=== PATIENT | male | born 1950 | race Caucasian/White ===

== ENCOUNTER 2017-05-04 19:28 | Inpatient (IN) | payer MEDICARE ==
[~2017-05-04] VITALS: Ht 180.3 cm; Wt 74.4 kg
[2017-05-04] MEDS ORDERED: ACETAMINOPHEN 325MG TABLET PO ONE (22:00)
[2017-05-05] MEDS ORDERED: GUAIFENESIN 200MG/10ML SUGAR FREE UDC PO PRN (03:00)
[2017-05-05] MEDS ORDERED: MAGNESIUM/ALUMINUM HYDROXIDE/SIMETHICONE 30ML UDC PO PRN (03:00)
[2017-05-05] MEDS ORDERED: ACETAMINOPHEN 325MG TABLET PO PRN (03:00)
[2017-05-05] MEDS ORDERED: IPRATROPIUM/ALBUTEROL 0.5-3(2.5)MG/3ML NEB INH PRN (03:00)
[2017-05-05] MEDS ORDERED: MAGNESIUM HYDROXIDE 400MG/5ML 30ML UDC PO PRN (03:00)
[2017-05-05] MEDS ORDERED: ONDANSETRON HCL 4MG/2ML VIAL IV PRN (03:00)
[2017-05-05] MEDS: HYDROCODONE/ACETAMINOPHEN 10/325MG TABLET PO PRN ×2 (03:54→13:03)
[2017-05-05 05:00] VITALS: BP 132/77
[2017-05-05] MEDS: SODIUM CHLORIDE 0.9% INJ 3ML FLUSH IVF SCH ×3 (05:39→21:15)
[2017-05-05 08:00] VITALS: BP 132/84
[2017-05-05 09:06] LABS: HEMATOCRIT. 37.1 % (42.0-52.0); HEMOGLOBIN. 12.7 g/dL (14.0-18.0); MEAN CORPUSCULAR HEMOGLOBIN 28.2 pg (28.0-32.0); MEAN CORPUSCULAR VOLUME 82.4 fL (80.0-94.0); MEAN PLATELET VOLUME 6.5 fl (7.4-10.4); PLATELET 382 x1000/uL (130-400); RED BLOOD CELL COUNT 4.51 mill/uL (4.7-6.1); RED CELL DISTRIBUTION WIDTH 15.5 % (11.6-14.6)
[2017-05-05 09:32] LABS: CARBON DIOXIDE 25 mEq/L (21-32); CHLORIDE 94 mEq/L (98-107)
[2017-05-05] MEDS: DOCUSATE SODIUM 250MG CAPSULE PO SCH ×2 (10:31→17:48)
[2017-05-05] MEDS: OMEPRAZOLE 20MG CAPSULE EXTENDED RELEASE PO SCH ×2 (10:31→21:15)
[2017-05-05] MEDS: CHLORDIAZEPOXIDE 5 MG CAPSULE PO SCH ×2 (10:31→17:49)
[2017-05-05] MEDS: CARBAMAZEPINE 200MG TABLET PO SCH ×2 (10:32→21:15)
[2017-05-05] MEDS: THIAMINE HCL 100MG TABLET PO SCH (10:32)
[2017-05-05] MEDS: CITALOPRAM HYDROBROMIDE 10MG TABLET PO SCH (10:32)
[2017-05-05 12:00] VITALS: BP 149/92
[2017-05-05 13:22] LABS: PLATELET ESTIMATE NORMAL
[2017-05-05 16:00] VITALS: BP 113/72
[2017-05-05 20:00] VITALS: BP 131/71
[2017-05-05] MEDS ORDERED: SENNOSIDES/DOCUSATE SOD 8.6/50MG TABLET PO PRN (21:00)
[2017-05-05] MEDS: ATORVASTATIN CALCIUM 40MG TABLET PO SCH (21:15)
[2017-05-06] VITALS: BP 141/86
[2017-05-06 04:00] VITALS: BP 136/84
[2017-05-06] MEDS: SODIUM CHLORIDE 0.9% INJ 3ML FLUSH IVF SCH ×3 (06:21→21:42)
[2017-05-06] MEDS: OMEPRAZOLE 20MG CAPSULE EXTENDED RELEASE PO SCH ×2 (06:21→21:41)
[2017-05-06 08:00] VITALS: BP 132/76
[2017-05-06] MEDS: CITALOPRAM HYDROBROMIDE 10MG TABLET PO SCH (09:27)
[2017-05-06] MEDS: THIAMINE HCL 100MG TABLET PO SCH (09:27)
[2017-05-06] MEDS: CHLORDIAZEPOXIDE 5 MG CAPSULE PO SCH ×2 (09:27→17:49)
[2017-05-06] MEDS: DOCUSATE SODIUM 250MG CAPSULE PO SCH ×2 (09:27→17:49)
[2017-05-06] MEDS: CARBAMAZEPINE 200MG TABLET PO SCH ×2 (09:27→21:41)
[2017-05-06 12:00] VITALS: BP 140/81
[2017-05-06 16:00] VITALS: BP 133/79
[2017-05-06] MEDS: HYDROCODONE/ACETAMINOPHEN 10/325MG TABLET PO PRN (16:12)
[2017-05-06 20:00] VITALS: BP 129/77
[2017-05-06] MEDS: ATORVASTATIN CALCIUM 40MG TABLET PO SCH (21:40)
[2017-05-06] MEDS ORDERED: MORPHINE SULFATE 4 MG/ML CPJ (NOT FOR IM USE) IV PRN (22:10)
[2017-05-06] MEDS ORDERED: SODIUM CHLORIDE 0.9% 1,000 ML IV SCH (22:15)
[2017-05-06] MEDS: DIPHENHYDRAMINE 50MG/ML VIAL IV PRN (23:50)
[2017-05-07] VITALS (44 sets, daily range): BP systolic 65–168; BP diastolic 40–110
[2017-05-07] MEDS: SODIUM CHLORIDE 0.9% INJ 3ML FLUSH IVF SCH ×3 (06:04→22:00)
[2017-05-07] MEDS: OMEPRAZOLE 20MG CAPSULE EXTENDED RELEASE PO SCH ×2 (06:29→20:49)
[2017-05-07 07:37] LABS: PARTIAL THROMBOPLASTIN TIME 21.3 sec (23.4-31.0); PROTHROMBIN TIME 10.2 sec (9.4-11.6)
[2017-05-07] MEDS ORDERED: GELATIN SPONGE,ABSORBABLE SZ 100 ONE ×2 (09:01→09:05)
[2017-05-07] MEDS ORDERED: THROMBIN (BOVINE) 5000 UNITS/VIAL TOP ONE ×2 (09:05→09:25)
[2017-05-07] MEDS ORDERED: LIDOCAINE HCL 1%/EPI 1:200,000 30 ML VIAL ONE (09:05)
[2017-05-07] MEDS ORDERED: NORMAL SALINE 0.9% 10 ML SYR ONE (09:05)
[2017-05-07] MEDS ORDERED: BACITRACIN 50,000 UNITS/VIAL ONE (09:05)
[2017-05-07] MEDS ORDERED: ALBUMIN HUMAN 12.5G/250ML (5%) IV ONE ×2 (09:33→09:59)
[2017-05-07] MEDS ORDERED: ROCURONIUM BROMIDE 10MG/ML VIAL 5ML IV ONE (10:22)
[2017-05-07] MEDS ORDERED: HYDRALAZINE 20MG/ML VIAL ONE ×2 (10:22→11:41)
[2017-05-07] MEDS ORDERED: LABETALOL HCL 20MG/4ML CARPUJECT IV PRN (10:30)
[2017-05-07] MEDS ORDERED: HYDROMORPHONE HCL/PF 2MG/ML CPJ IV PRN (10:30)
[2017-05-07] MEDS ORDERED: ONDANSETRON HCL 4MG/2ML VIAL IV PRN (10:30)
[2017-05-07] MEDS ORDERED: MEPERIDINE HCL/PF 25MG/ML CPJ IV PRN (10:30)
[2017-05-07] MEDS ORDERED: NEOSTIGMINE METHYLSULFATE 1MG/ML 10 ML VIAL ONE (11:38)
[2017-05-07] MEDS ORDERED: GLYCOPYRROLATE 0.2 MG/ML 2ML VIAL ONE (11:38)
[2017-05-07] MEDS ORDERED: CEFAZOLIN 1000MG PREMIX 50 ML IV SCH (11:45)
[2017-05-07] MEDS ORDERED: PERMETHRIN 5% CREAM 60GM TOP NR (12:30)
[2017-05-07] MEDS ORDERED: ONDANSETRON INJ IV PRN (13:00)
[2017-05-07] MEDS ORDERED: DIPHENHYDRAMINE INJ IV PRN (13:00)
[2017-05-07] MEDS ORDERED: NALOXONE INJ IV PRN (13:00)
[2017-05-07] MEDS: CEFAZOLIN 1000MG PREMIX 50 ML IV SCH ×2 (13:30→20:49)
[2017-05-07] MEDS: DEXT 5%/0.45% NACL KCL 20MEQ/L 1,000 ML IV SCH (13:33)
[2017-05-07] MEDS: HYDROMORPHONE PCA 10MG/50ML IV PRN (14:29)
[2017-05-07] MEDS: DOCUSATE SODIUM 250MG CAPSULE PO SCH (17:00)
[2017-05-07] MEDS: ATORVASTATIN CALCIUM 40MG TABLET PO SCH (20:48)
[2017-05-07] MEDS: DIPHENHYDRAMINE 50MG/ML VIAL IV PRN (20:49)
[2017-05-08] VITALS (58 sets, daily range): BP systolic 86–147; BP diastolic 44–91
[2017-05-08] MEDS: DEXT 5%/0.45% NACL KCL 20MEQ/L 1,000 ML IV SCH ×2 (03:01→14:58)
[2017-05-08] MEDS: SODIUM CHLORIDE 0.9% INJ 3ML FLUSH IVF SCH ×3 (06:04→21:00)
[2017-05-08] MEDS: OMEPRAZOLE 20MG CAPSULE EXTENDED RELEASE PO SCH ×2 (06:04→20:59)
[2017-05-08] MEDS: CEFAZOLIN 1000MG PREMIX 50 ML IV SCH ×2 (06:05→13:30)
[2017-05-08 06:14] LABS: MEAN CORPUSCULAR HEMOGLOBIN 28.1 pg (28.0-32.0); MEAN CORPUSCULAR VOLUME 84.2 fL (80.0-94.0); MEAN PLATELET VOLUME 6.6 fl (7.4-10.4); PLATELET 264 x1000/uL (130-400); RED BLOOD CELL COUNT 3.57 mill/uL (4.7-6.1); RED CELL DISTRIBUTION WIDTH 15.5 % (11.6-14.6)
[2017-05-08 06:32] LABS: CARBON DIOXIDE 22 mEq/L (21-32); CHLORIDE 104 mEq/L (98-107)
[2017-05-08] MEDS: THIAMINE HCL 100MG TABLET PO SCH ×2 (09:00→10:12)
[2017-05-08] MEDS: DOCUSATE SODIUM 250MG CAPSULE PO SCH ×3 (09:00→17:00)
[2017-05-08] MEDS: CITALOPRAM HYDROBROMIDE 10MG TABLET PO SCH (09:00)
[2017-05-08] MEDS: CARBAMAZEPINE 200MG TABLET PO SCH ×2 (10:12→20:59)
[2017-05-08 12:16] LABS: INR 1.1; PARTIAL THROMBOPLASTIN TIME 25.7 sec (23.4-31.0); PROTHROMBIN TIME 10.9 sec (9.4-11.6)
[2017-05-08] MEDS: HYDROMORPHONE PCA 10MG/50ML IV PRN (12:28)
[2017-05-08] MEDS ORDERED: PERMETHRIN 5% CREAM 60GM TOP NR (13:30)
[2017-05-08 16:28] LABS: PLATELET ESTIMATE NORMAL
[2017-05-08] MEDS: DIPHENHYDRAMINE 50MG/ML VIAL IV PRN (18:28)
[2017-05-08] MEDS: HYDROMORPHONE HCL/PF 2MG/ML CPJ IV PRN ×2 (18:45→23:13)
[2017-05-08] MEDS ORDERED: SODIUM CHLORIDE 0.9% 500 ML IV ONE (20:00)
[2017-05-08] MEDS: ATORVASTATIN CALCIUM 40MG TABLET PO SCH (20:59)
[2017-05-08] MEDS ORDERED: SODIUM CHLORIDE 0.9% 1,000 ML IV ONE (21:00)
[2017-05-09] VITALS (71 sets, daily range): BP systolic 86–170; BP diastolic 18–106
[2017-05-09] MEDS: OMEPRAZOLE 20MG CAPSULE EXTENDED RELEASE PO SCH ×2 (05:59→20:04)
[2017-05-09] MEDS: SODIUM CHLORIDE 0.9% INJ 3ML FLUSH IVF SCH ×3 (05:59→22:14)
[2017-05-09] MEDS: DIPHENHYDRAMINE 50MG/ML VIAL IV PRN (05:59)
[2017-05-09] MEDS: HYDROMORPHONE HCL/PF 2MG/ML CPJ IV PRN ×3 (06:00→20:06)
[2017-05-09] MEDS: DOCUSATE SODIUM 250MG CAPSULE PO SCH ×2 (08:04→16:31)
[2017-05-09] MEDS: CITALOPRAM HYDROBROMIDE 10MG TABLET PO SCH (08:04)
[2017-05-09] MEDS: CARBAMAZEPINE 200MG TABLET PO SCH ×2 (08:04→20:04)
[2017-05-09] MEDS: THIAMINE HCL 100MG TABLET PO SCH (08:04)
[2017-05-09] MEDS ORDERED: SODIUM CHLORIDE 0.9% 500 ML IV ONE (11:45)
[2017-05-09] MEDS ORDERED: NOREPINEPHRINE 8 MG in DEXT 5% WATER 242 ML IV PRN (12:00)
[2017-05-09] MEDS: ATORVASTATIN CALCIUM 40MG TABLET PO SCH (20:04)
[2017-05-10] VITALS (42 sets, daily range): BP systolic 87–149; BP diastolic 42–101
[2017-05-10] MEDS: OMEPRAZOLE 20MG CAPSULE EXTENDED RELEASE PO SCH ×2 (06:06→20:51)
[2017-05-10] MEDS: SODIUM CHLORIDE 0.9% INJ 3ML FLUSH IVF SCH ×3 (06:06→22:53)
[2017-05-10] MEDS: THIAMINE HCL 100MG TABLET PO SCH (08:00)
[2017-05-10] MEDS: CITALOPRAM HYDROBROMIDE 10MG TABLET PO SCH (08:00)
[2017-05-10] MEDS: CARBAMAZEPINE 200MG TABLET PO SCH ×2 (08:00→20:51)
[2017-05-10] MEDS: DOCUSATE SODIUM 250MG CAPSULE PO SCH ×2 (08:00→17:46)
[2017-05-10] MEDS: HYDROCODONE/ACETAMINOPHEN 10/325MG TABLET PO PRN (08:38)
[2017-05-10] MEDS: HYDROMORPHONE HCL/PF 2MG/ML CPJ IV PRN ×2 (17:48→22:48)
[2017-05-10] MEDS: ATORVASTATIN CALCIUM 40MG TABLET PO SCH (20:51)
[2017-05-11 00:24] VITALS: BP 114/54
[2017-05-11 04:00] VITALS: BP 122/62
[2017-05-11] MEDS: HYDROMORPHONE HCL/PF 2MG/ML CPJ IV PRN (04:14)
[2017-05-11] MEDS: SODIUM CHLORIDE 0.9% INJ 3ML FLUSH IVF SCH ×3 (07:01→20:53)
[2017-05-11] MEDS: OMEPRAZOLE 20MG CAPSULE EXTENDED RELEASE PO SCH ×2 (07:01→20:53)
[2017-05-11 09:00] VITALS: BP 112/63
[2017-05-11] MEDS: DOCUSATE SODIUM 250MG CAPSULE PO SCH ×2 (09:02→16:40)
[2017-05-11] MEDS: CITALOPRAM HYDROBROMIDE 10MG TABLET PO SCH (09:02)
[2017-05-11] MEDS: THIAMINE HCL 100MG TABLET PO SCH (09:02)
[2017-05-11] MEDS: CARBAMAZEPINE 200MG TABLET PO SCH ×2 (09:02→20:53)
[2017-05-11 12:00] VITALS: BP 131/71
[2017-05-11] MEDS: HYDROCODONE/ACETAMINOPHEN 10/325MG TABLET PO PRN ×2 (13:17→17:59)
[2017-05-11 16:00] VITALS: BP 140/69
[2017-05-11 20:00] VITALS: BP 159/84
[2017-05-11] MEDS: ATORVASTATIN CALCIUM 40MG TABLET PO SCH (20:53)
== END 2017-05-11 21:05 | DRG 460 ==
LOC: ER 21:27 → 6EST 05-05 02:54 → ENRESERV 05-05 03:59 → CANRESERV 05-05 03:59 → ENRESERV 05-05 05:07 → MICUNO 05-07 11:50 → 6WST 05-10 16:43
PROVIDERS: ADMIT Internal Medicine; ATTEND Internal Medicine
PROC: 0RG6071 Fusion of Thoracic Vertebral Joint with Autologous Tissue Substitute, Posterior Approach, Posterior Column, Open Approach (ICD-10-PCS; 2017-05-07)
PROC: 00NX0ZZ Release Thoracic Spinal Cord, Open Approach (ICD-10-PCS; 2017-05-07)
PROC: 00NY0ZZ Release Lumbar Spinal Cord, Open Approach (ICD-10-PCS; 2017-05-07)
PROC: 0RGA071 Fusion of Thoracolumbar Vertebral Joint with Autologous Tissue Substitute, Posterior Approach, Posterior Column, Open Approach (ICD-10-PCS; principal; 2017-05-07 09:30)
DX: S22.082A Unstable burst fracture of T11-T12 vertebra, initial encounter for closed fracture (principal); G82.20 Paraplegia, unspecified; G95.20 Unspecified cord compression; W18.39XA Other fall on same level, initial encounter; F32.9 Major depressive disorder, single episode, unspecified; G40.909 Epilepsy, unspecified, not intractable, without status epilepticus; K21.9 Gastro-esophageal reflux disease without esophagitis; E78.00 Pure hypercholesterolemia, unspecified; Z98.42 Cataract extraction status, left eye; Z98.41 Cataract extraction status, right eye; Y93.89 Activity, other specified; Y92.89 Other specified places as the place of occurrence of the external cause; Y99.8 Other external cause status
CPT/HCPCS: 36415; 70450; 71010; 72070; 72131; 72146; 72148; 80048; 80053; 80156; 85025; 85610; 85730; 86850; 86900; 93005; 93970; 97116; 97162; 97530; 97760; 99285; A4216; C1713; J0360; J0690; J1170; J1200; J2270; J2710; J3490; J7030; J7040; J7050; P9041

== ENCOUNTER 2017-06-05 10:18 | Emergency (ER) | payer MEDICARE ==
[~2017-06-05] VITALS: Ht 177.8 cm; Wt 70.0 kg
[2017-06-05] MEDS ORDERED: KETOROLAC 60MG/2ML VIAL IM ONE (12:45)
[2017-06-05] MEDS ORDERED: HYDROCODONE/ACETAMINOPHEN 5/325MG TABLET PO ONE (12:45)
[2017-06-05 13:52] VITALS: BP 140/81
== END 2017-06-05 14:00 | disposition home or self-care (01) ==
LOC: ER 10:31
DX: M54.9 Dorsalgia, unspecified (principal); G89.29 Other chronic pain; R56.9 Unspecified convulsions; E78.00 Pure hypercholesterolemia, unspecified
CPT/HCPCS: 96372; 99283; J1885

== ENCOUNTER 2017-11-30 13:37 | Emergency (ER) | payer MEDICARE ==
[~2017-11-30] VITALS: Ht 175.3 cm; Wt 70.0 kg
[2017-11-30] MEDS ORDERED: HYDROCODONE/ACETAMINOPHEN 5/325MG TABLET PO ONE (15:15)
[2017-11-30 21:00] VITALS: BP 138/73
== END 2017-11-30 21:40 | disposition home or self-care (01) ==
LOC: ER 13:46
DX: S52.531A Colles' fracture of right radius, initial encounter for closed fracture (principal); E78.00 Pure hypercholesterolemia, unspecified; R56.9 Unspecified convulsions; W01.0XXA Fall on same level from slipping, tripping and stumbling without subsequent striking against object, initial encounter; Y93.89 Activity, other specified; Y99.8 Other external cause status; Y92.192 Bathroom in other specified residential institution as the place of occurrence of the external cause
CPT/HCPCS: 29125; 73110; 73130; 99284

== ENCOUNTER 2017-12-15 10:31 | Emergency (ER) | payer MEDICARE ==
[~2017-12-15] VITALS: Ht 180.3 cm; Wt 68.5 kg
[2017-12-15] MEDS ORDERED: VITAMINB (10:52)
[2017-12-15] MEDS ORDERED: CITA10TA9 PO (10:52)
[2017-12-15] MEDS ORDERED: hydrocodone (10:52)
[2017-12-15] MEDS ORDERED: SENN-169 PO (10:52)
[2017-12-15] MEDS ORDERED: CARB200T PO (10:52)
[2017-12-15] MEDS ORDERED: MELA3TAB PO (10:52)
[2017-12-15] MEDS ORDERED: OXYC5CAP12 PO (10:52)
[2017-12-15] MEDS ORDERED: TRAM50TA3 PO (10:52)
[2017-12-15] MEDS ORDERED: OMEP20CA10 PO (10:52)
[2017-12-15] MEDS ORDERED: IBUP-2028 PO (10:52)
[2017-12-15] MEDS ORDERED: CHLO5CAP3 PO (10:52)
[2017-12-15] MEDS ORDERED: ALEN70TA46 PO (10:52)
[2017-12-15] MEDS ORDERED: ATOR-2 PO (10:52)
[2017-12-15] MEDS ORDERED: LORA1TAB PO (10:52)
[2017-12-15 12:43] LABS: BASOPHILS % 1.6 % (0.0-2.0); EOSINOPHILS % 1.6 % (0.0-5.0); HEMATOCRIT. 33.3 % (42.0-52.0); HEMOGLOBIN. 11.1 g/dL (14.0-18.0); LYMPHOCYTES % 7.9 % (20.0-50.0); MEAN CORPUSCULAR HEMOGLOBIN 27.9 pg (28.0-32.0); MEAN PLATELET VOLUME 5.8 fl (7.4-10.4); MONOCYTES % 10.8 % (2.0-8.0); NEUTROPHILS % 78.1 % (40.0-76.0); PLATELET 327 x1000/uL (130-400); RED BLOOD CELL COUNT 3.97 mill/uL (4.7-6.1); RED CELL DISTRIBUTION WIDTH 22.2 % (11.6-14.6)
[2017-12-15 12:54] LABS: CHLORIDE 98 mEq/L (98-107)
[2017-12-15 12:57] LABS: ETHANOL BLOOD < 10 mg/dL
[2017-12-15 13:09] LABS: PLATELET ESTIMATE NORMAL
[2017-12-15 17:26] VITALS: BP 125/69
== END 2017-12-15 17:28 | disposition home or self-care (01) ==
LOC: ER 10:45
DX: F10.20 Alcohol dependence, uncomplicated (principal); K21.9 Gastro-esophageal reflux disease without esophagitis; R55 Syncope and collapse; R42 Dizziness and giddiness; Y90.0 Blood alcohol level of less than 20 mg/100 ml
CPT/HCPCS: 36415; 80048; 85025; 93005; 99285; G0482

== ENCOUNTER 2017-12-24 08:35 | Emergency (ER) | payer MEDICARE ==
[~2017-12-24] VITALS: Ht 177.8 cm; Wt 57.0 kg
[~2017-12-24 08:35] MED LIST: ALEN70TA46 PO; ATOR-2 PO; CARB200T PO; CHLO5CAP3 PO; CITA10TA9 PO; IBUP-2028 PO; LORA1TAB PO; MELA3TAB PO; OMEP20CA10 PO; OXYC5CAP12 PO; SENN-169 PO; TRAM50TA3 PO; VITAMINB; hydrocodone
[2017-12-24] MEDS ORDERED: ACETAMINOPHEN 500MG TABLET PO ONE (11:15)
[2017-12-24] MEDS ORDERED: LIDOCAINE HCL 1% 20ML VIAL (Pyxis) INJ MC ONE (11:15)
[2017-12-24] MEDS ORDERED: BACITRACIN ZINC OINT UDPKT TOP ONE (11:15)
[2017-12-24] MEDS ORDERED: LIDOCAINE HCL/PF 1% 10 MG/ML 5ML VIAL IJ ONE (12:10)
[2017-12-24 16:49] VITALS: BP 143/72
== END 2017-12-24 16:52 | disposition home or self-care (01) ==
LOC: ER 09:13
DX: S01.111A Laceration without foreign body of right eyelid and periocular area, initial encounter (principal); S20.20XA Contusion of thorax, unspecified, initial encounter; S09.8XXA Other specified injuries of head, initial encounter; F17.200 Nicotine dependence, unspecified, uncomplicated; F41.9 Anxiety disorder, unspecified; J34.2 Deviated nasal septum; J32.9 Chronic sinusitis, unspecified; W01.190A Fall on same level from slipping, tripping and stumbling with subsequent striking against furniture, initial encounter; Y93.89 Activity, other specified; Y92.122 Bedroom in nursing home as the place of occurrence of the external cause
CPT/HCPCS: 12011; 36415; 70450; 70486; 71111; 99285; G0482; J3490

== ENCOUNTER 2017-12-31 08:33 | Emergency (ER) | payer MEDICARE ==
[~2017-12-31] VITALS: Ht 177.8 cm; Wt 73.0 kg
[2017-12-31 10:58] VITALS: BP 142/83
== END 2017-12-31 11:38 | disposition home or self-care (01) ==
LOC: ER 11:29
DX: Z48.02 Encounter for removal of sutures (principal); Z48.00 Encounter for change or removal of nonsurgical wound dressing
CPT/HCPCS: 99281